=== PATIENT | female | born 1965 | race African-American/Black ===

== ENCOUNTER 2024-05-11 19:00 | Emergency (ER) | payer OTHER ==
[~2024-05-11] VITALS: Ht 162.6 cm; Wt 70.0 kg
[2024-05-11] MEDS ORDERED: ONDANSETRON HCL 4MG/2ML INJ IV ONE (20:30)
[2024-05-11] MEDS ORDERED: METHYLPREDNISOLONE SOD SUCC 125MG/2ML (ACT-O-VIAL) IV ONE (20:30)
[2024-05-11] MEDS: MORPHINE SULFATE 4 MG/ML INJ (FOR IV/IM USE) IV ONE (20:30)
[2024-05-11 20:39] VITALS: PULSE 104; RESP 25; O2SAT 99
[2024-05-11] MEDS: IPRATROPIUM/ALBUTEROL 0.5-3(2.5)MG/3ML NEB HHN ONE (20:39)
[2024-05-11 22:11] LABS: BASOPHILS % 0.5 % (0.0-2.0); EOSINOPHILS % 1.8 % (0.0-5.0); HEMATOCRIT. 42.6 % (36.0-48.0); HEMOGLOBIN. 13.7 g/dL (12.0-16.0); LYMPHOCYTES % 25.4 % (20.0-50.0); MEAN CORPUSCULAR HEMOGLOBIN 25.9 pg (28.0-32.0); MEAN CORPUSCULAR HGB CONC 32.2 g/dL (31.0-37.0); MEAN CORPUSCULAR VOLUME 80.5 fL (81.0-99.0); MEAN PLATELET VOLUME 8.8 fl (7.4-10.4); MONOCYTES % 3.8 % (2.0-8.0); NEUTROPHILS % 68.5 % (40.0-76.0); PLATELET 413 x1000/uL (130-400); RED BLOOD CELL COUNT 5.29 mill/uL (4.2-5.4); WHITE BLOOD COUNT 15.8 x1000/uL (4.5-11.0)
[2024-05-11 22:13] LABS: CHLORIDE 100 mEq/L (98-107); POTASSIUM 4.1 mEq/L (3.5-5.1); SODIUM 137 mEq/L (136-145)
[2024-05-11 22:14] LABS: CARBON DIOXIDE 29 mEq/L (21-32)
[2024-05-11 22:18] LABS: D-DIMER 0.39 mg/L FEU (<0.50); INR 0.9; PARTIAL THROMBOPLASTIN TIME 26.8 sec (23.4-31.0); PROTHROMBIN TIME 10.6 sec (9.6-11.0)
[2024-05-11 22:19] LABS: CREATININE 1.4 mg/dL (0.6-1.0); GLUCOSE 161 mg/dL (70-105); UREA NITROGEN BLOOD 27 mg/dL (9-23)
[2024-05-11 22:21] LABS: TROPONIN I HIGH SENSITIVITY < 4 ng/L (3.0-34)
[2024-05-11] MEDS: METHYLPREDNISOLONE SOD SUCC 125MG/2ML (ACT-O-VIAL) IV NR (23:02)
[2024-05-11] MEDS: ACETAMINOPHEN 325MG TABLET PO ONE (23:02)
[2024-05-11] MEDS: ONDANSETRON HCL 4MG/2ML INJ IV NR (23:03)
[2024-05-11] MEDS: MAGNESIUM 2 G PREMIX 50 ML IV ONE (23:09)
[2024-05-12 00:30] LABS: TROPONIN I HIGH SENSITIVITY < 4 ng/L (3.0-34)
[2024-05-12] MEDS: ACETAMINOPHEN 325MG TABLET PO NR (02:30)
[2024-05-12 02:52] VITALS: BP 118/64; PULSE 92; RESP 18; O2SAT 100
== END 2024-05-12 03:15 | disposition short-term general hospital (02) ==
LOC: ER 19:00 → EDBEDREQ 20:02 → ER 05-12 03:15
DX: R07.89 Other chest pain (principal); J45.909 Unspecified asthma, uncomplicated; E66.9 Obesity, unspecified; E11.9 Type 2 diabetes mellitus without complications; Z88.1 Allergy status to other antibiotic agents; Z88.2 Allergy status to sulfonamides; Z88.5 Allergy status to narcotic agent
CPT/HCPCS: 99291; 96365; 96375; 96366; 80048; 83880; 83690; 85025; 85379; 85610; 85730; 84484; 36415; 71045; 94640; 93005; J3475; J2919; J2405